=== PATIENT | female | born 1990 | race African-American/Black ===

== ENCOUNTER 2018-12-11 20:55 | Emergency (ER) | payer MEDICAID ==
[~2018-12-11] VITALS: Ht 152.4 cm; Wt 71.0 kg
[2018-12-11] MEDS ORDERED: ONDANSETRON 4MG ODT PO ONE (22:00)
[2018-12-11] MEDS ORDERED: IBUPROFEN 600MG TABLET PO ONE (22:00)
[2018-12-11 22:40] VITALS: BP 115/70
== END 2018-12-11 23:34 | disposition home or self-care (01) ==
LOC: ER 20:55
DX: R51 Headache (principal); M54.5 Low back pain; R11.0 Nausea; V43.62XA Car passenger injured in collision with other type car in traffic accident, initial encounter; Y93.89 Activity, other specified; Y92.488 Other paved roadways as the place of occurrence of the external cause
CPT/HCPCS: 99283; Q0162

== ENCOUNTER 2019-02-19 11:23 | Emergency (ER) | payer MEDICAID ==
[~2019-02-19] VITALS: Ht 154.9 cm; Wt 73.0 kg
[2019-02-19 11:50] VITALS: BP 117/75
[2019-02-19] MEDS ORDERED: IBUPROFEN 600MG TABLET PO ONE (12:15)
== END 2019-02-19 12:50 | disposition home or self-care (01) ==
LOC: ER 11:23
DX: J11.1 Influenza due to unidentified influenza virus with other respiratory manifestations (principal)
CPT/HCPCS: 71045; 99283; Z7610